=== PATIENT | female | born 1945 | race Caucasian/White ===

== ENCOUNTER 2016-08-12 11:27 | Inpatient (IN) ==
[2016-08-12] MEDS ORDERED: ONDANSETRON 4 MG/2 ML VIAL IV ONE (11:51)
[2016-08-12] MEDS ORDERED: 0.9 % SODIUM CHLORIDE 1,000 ML IV ONE (11:51)
--- NOTE | 2016-08-12 11:51 | Emergency Department Note ---
SOB HPI - General Chief Complaint: Shortness of Breath/Dyspnea Stated Complaint: Vomiting, shortness of breath Time Seen by Provider: 08/12/16 11:47 Source: patient Mode of arrival: wheelchair Limitations: no limitations - History of Present Illness This patient was diagnosed with UTI and night and started on Bactrim. Since then she has had nausea and vomiting. Also was developed shortness of breath. She has a history of COPD but does not feel like she has been wheezing or coughing much. MD Complaint: shortness of breath Onset (ago): day(s) Context: recent illness - Related Data Home Medications Medication Instructions Recorded Confirmed ALPRAZolam [Xanax] 0.25 mg PO BID 08/12/16 08/12/16 Albuterol Sulfate 1.25 mg IH QIDP PRN 08/12/16 08/12/16 Albuterol Sulfate [Proair 90 mcg IH Q6HP PRN 08/12/16 08/12/16 Respiclick] Aspirin [Lo-Dose Aspirin EC] 81 mg PO DAILY 08/12/16 08/12/16 Blood Sugar Diagnostic [Test 1 appful .ROUTE BID 08/12/16 08/12/16 Strips] Calcium Polycarbophil [Fiber] 1,250 mg PO DAILY 08/12/16 08/12/16 Cyanocobalamin (Vitamin B-12) 2,500 mcg PO MONTHLY 08/12/16 08/12/16 [Vitamin B12] Ergocalciferol (Vitamin D2) 50,000 unit PO WEEKLY 08/12/16 08/12/16 [Vitamin D2] Esomeprazole Magnesium [Nexium] 40 mg PO DAILY 08/12/16 08/12/16 Fluocinonide [Fluocinonide] 1 appful TOPICAL BID 08/12/16 08/12/16 Fluticasone Propionate [Flovent 1 spray INH DAILY 08/12/16 08/12/16 Diskus] Fluticasone/Salmeterol [Advair 1 puff INH BID 08/12/16 08/12/16 500-50 Diskus] HYDROcodone/APAP 10/325MG 1 - 2 tab PO Q4HP PRN 08/12/16 08/12/16 Lancets [Blood Lancets] 1 appful .ROUTE BID 08/12/16 08/12/16 Levothyroxine [Synthroid] 125 mcg PO DAILY 08/12/16 08/12/16 Metolazone [Zaroxolyn] 2.5 mg PO Q2D 08/12/16 08/12/16 Montelukast [Singular] 10 mg PO DAILY 08/12/16 08/12/16 Mv-Mn/FA/Vit K1/Lycop/Lut/Zeax 1 tab PO DAILY 08/12/16 08/12/16 [Ocuvite Eye + Multi Tablet] Ondansetron [Zofran Odt] 8 mg PO Q6HP PRN 08/12/16 08/12/16 Potassium Chloride [Kdur] 20 meq PO TID 08/12/16 08/12/16 Pramipexole Di-HCl [Mirapex] 1 mg PO DAILY 08/12/16 08/12/16 Refresh Tears 1 appful TOPICAL QIDP PRN 08/12/16 08/12/16 Theophylline Anhydrous [Kevin-24] 300 mg PO DAILY 08/12/16 08/12/16 Torsemide [Demadex] 60 mg PO DAILY 08/12/16 08/12/16 carBAMazepine [TEGretol] 100 mg PO BID 08/12/16 08/12/16 guaiFENesin [Mucinex] 1,200 mg PO DAILY 08/12/16 08/12/16 Allergies Allergy/AdvReac Type Severity Reaction Status Date / Time azithromycin Allergy Itching Verified 08/12/16 11:35 Hydromorphone [From Dilaudid] Allergy Rash Verified 08/12/16 11:35 pregabalin [From Lyrica] Allergy Shakiness Verified 08/12/16 11:35 tetanus and diphtheria Allergy Swelling Verified 08/12/16 11:35 toxoids Review of Systems Constitutional: Denies: fever, chills Eyes: Denies: eye pain ENT ED: Denies: ear pain Cardiovascular: Denies: chest pain, palpitations Respiratory: Reports: dyspnea. Denies: cough, wheezes Gastrointestinal: Reports: nausea, vomiting. Denies: abdominal pain Genitourinary: Reports: urgency, dysuria, frequency Musculoskeletal: Denies: back pain Integumentary: Denies: rash Past Medical History - Past Medical History Medical history: Reports: COPD, seizures, thyroid disease Physical Exam - General Limitations: no limitations General appearance: alert, in no apparent distress - Head Head exam: atraumatic, normocephalic - Eye Eye exam: Present: normal appearance - ENT ENT exam: mucous membranes dry - Neck Neck exam: Present: normal inspection - Chest Chest inspection: Present: normal inspection - Respiratory Respiratory exam: Present: normal lung sounds bilaterally - Cardiovascular Cardiovascular exam: Present: regular rate, normal rhythm, normal heart sounds - Abdominal Exam Abdominal exam: Present: soft. Absent: distention, tenderness - Neurological Exam Neurological exam: Present: alert - Psychiatric Psychiatric exam: Present: normal affect, normal mood - Skin Skin exam: Present: warm, dry, intact Course Vital Signs Temperature 98.2 F 08/12/16 11:29 Pulse Rate 88 08/12/16 11:29 Respiratory Rate 24 H 08/12/16 11:29 Blood Pressure 134/85 08/12/16 11:29 Pulse Oximetry (%) 85 L 08/12/16 11:29 Temperature 98.2 F 08/12/16 11:29 Pulse Rate 80 08/12/16 13:19 Respiratory Rate 18 08/12/16 13:19 Blood Pressure 151/87 08/12/16 13:00 Pulse Oximetry (%) 96 08/12/16 13:19 Shortness of Breath/Dyspnea - MDM Narrative Medical decision making narrative: This patient has pneumonia and hypo-kalemia. We did blood cultures and gave her Levaquin and Rocephin she will be admitted to the hospital by Dr. Salazar - Lab Data Lab results reviewed: Yes I reviewed the patient's lab results. Result diagrams: 08/12/16 11:53 08/12/16 11:53 Lab Results 08/12/16 08/12/16 08/12/16 Range/Units 11:53 11:53 11:53 WBC 6.2 (4.5-11.0) K/mcL RBC 4.73 (4.00-5.20) M/mcL Hgb 14.7 (12.0-15.0) g/dL Hct 43.4 (36.0-48.0) % MCV 91.6 (80.0-100.0) fL MCH 31.1 (26.0-34.0) pg MCHC 34.0 (31.0-36.0) g/dL RDW 14.7 H (11.5-14.5) % Plt Count 276 (140-440) K/mcL MPV 8.5 (7.4-10.4) fL Gran % 72.0 (38.0-78.0) % Lymph % (Auto) 13.9 L (15.5-49.0) % Tucker % (Auto) 11.2 (1.0-12.0) % Eos % (Auto) 1.8 (0.0-7.0) % Baso % (Auto) 1.1 (0.0-2.0) % Gran # 4.5 (1.8-8.0) K/mcL Lymph # (Auto) 0.9 L (1.5-4.8) K/mcL Tucker # (Auto) 0.7 (0.1-0.9) K/mcL Eos # (Auto) 0.1 (0.0-0.7) K/mcL Baso # (Auto) 0.1 (0.0-0.3) K/mcL VBG Lactic Acid 1.8 (0.5-2.2) mmol/L Sodium 129 L (133-145) mmol/L Potassium 2.9 L* (3.3-5.1) mmol/L Chloride 78 L (96-108) mmol/L Carbon Dioxide 36 H (22-30) mmol/L Anion Gap 15.0 (8-16) BUN 21 (8-23) mg/dl Creatinine 1.5 H (0.6-1.1) mg/dl GFR Calculation 34 Glucose 128 H (70-105) mg/dL Calcium 9.3 (8.6-10.4) mg/dl Total Bilirubin 0.5 (0.0-1.0) mg/dL AST 20 (0-37) U/l ALT 13 (0-40) U/l Alkaline Phosphatase 111 (39-117) U/L NT-Pro-B Natriuret Pep 90.7 (0-125) pg/ml Total Protein 7.3 (5.9-8.4) gm/dL Albumin 4.0 (3.2-5.2) gm/dL Globulin 3.3 (2.2-3.7) gm/dL Albumin/Globulin Ratio 1.2 (1.0-2.3) Urine Color Urine Appearance Urine pH (5.0-9.0) Ur Specific [place] (1.000-1.035) Urine Protein (NEG) mg/dL Urine Glucose (UA) (NEG) mg/dL Urine Ketones (NEG) mg/dL Urine Occult Blood (<0.03) mg/dL Urine Nitrate (NEG) Urine Bilirubin (NEG) mg/dL Urine Urobilinogen (NEG) mg/dL Ur Leukocyte Esterase (NEG) /uL Urine RBC (0-1) /hpf Urine WBC (0-4) /hpf Ur Squamous Epith Cells (0-4) /hpf Ur Transition Epith Cell (0-2) /hpf Urine Bacteria (0) /hpf Hyaline Casts (0-2) /lpf Urine Mucus (0) /hpf Ur Culture Indicated? 08/12/16 Range/Units 12:23 WBC (4.5-11.0) K/mcL RBC (4.00-5.20) M/mcL Hgb (12.0-15.0) g/dL Hct (36.0-48.0) % MCV (80.0-100.0) fL MCH (26.0-34.0) pg MCHC (31.0-36.0) g/dL RDW (11.5-14.5) % Plt Count (140-440) K/mcL MPV (7.4-10.4) fL Gran % (38.0-78.0) % Lymph % (Auto) (15.5-49.0) % Tucker % (Auto) (1.0-12.0) % Eos % (Auto) (0.0-7.0) % Baso % (Auto) (0.0-2.0) % Gran # (1.8-8.0) K/mcL Lymph # (Auto) (1.5-4.8) K/mcL Tucker # (Auto) (0.1-0.9) K/mcL Eos # (Auto) (0.0-0.7) K/mcL Baso # (Auto) (0.0-0.3) K/mcL VBG Lactic Acid (0.5-2.2) mmol/L Sodium (133-145) mmol/L Potassium (3.3-5.1) mmol/L Chloride (96-108) mmol/L Carbon Dioxide (22-30) mmol/L Anion Gap (8-16) BUN (8-23) mg/dl Creatinine (0.6-1.1) mg/dl GFR Calculation Glucose (70-105) mg/dL Calcium (8.6-10.4) mg/dl Total Bilirubin (0.0-1.0) mg/dL AST (0-37) U/l ALT (0-40) U/l Alkaline Phosphatase (39-117) U/L NT-Pro-B Natriuret Pep (0-125) pg/ml Total Protein (5.9-8.4) gm/dL Albumin (3.2-5.2) gm/dL Globulin (2.2-3.7) gm/dL Albumin/Globulin Ratio (1.0-2.3) Urine Color Bing Urine Appearance Clear Urine pH 5.0 (5.0-9.0) Ur Specific [place] 1.019 (1.000-1.035) Urine Protein Neg (NEG) mg/dL Urine Glucose (UA) Negative (NEG) mg/dL Urine Ketones Neg (NEG) mg/dL Urine Occult Blood Neg (<0.03) mg/dL Urine Nitrate Pos A (NEG) Urine Bilirubin Neg (NEG) mg/dL Urine Urobilinogen 2.0 A (NEG) mg/dL Ur Leukocyte Esterase Neg (NEG) /uL Urine RBC 2 H (0-1) /hpf Urine WBC 1 (0-4) /hpf Ur Squamous Epith Cells < 1 (0-4) /hpf Ur Transition Epith Cell < 1 (0-2) /hpf Urine Bacteria 0 (0) /hpf Hyaline Casts 41 H (0-2) /lpf Urine Mucus Few (0) /hpf Ur Culture Indicated? No - Radiology Data Radiology results reviewed: Yes I reviewed the patient's radiology results. Disposition Clinical Impression: Community acquired pneumonia Disposition: Xfer As Inpt ([facility]) Condition: Good Referrals: Catrachita Madden ARNP [Primary Care Provider] - Time of Disposition: 13:55
[2016-08-12 12:24] LABS: Basophils # (Auto) 0.1 K/mcL (0.0-0.3); Basophils % (Auto) 1.1 % (0.0-2.0); Eosinophils # (Auto) 0.1 K/mcL (0.0-0.7); Eosinophils % (Auto) 1.8 % (0.0-7.0); Lymphocytes # (Auto) 0.9 K/mcL (1.5-4.8); Lymphocytes % (Auto) 13.9 % (15.5-49.0); Mean Cell Volume 91.6 fL (80.0-100.0); Mean Corpuscular Hemoglobin 31.1 pg (26.0-34.0); Monocytes # (Auto) 0.7 K/mcL (0.1-0.9); Monocytes % (Auto) 11.2 % (1.0-12.0); Platelet Count 276 K/mcL (140-440); RBC 4.73 M/mcL (4.00-5.20); Red Cell Distribution Width 14.7 % (11.5-14.5)
[2016-08-12] MEDS ORDERED: cefTRIAXone 1 GM in DEXTROSE 5% IN WATER 50 ML IV ONE (12:25)
[2016-08-12] MEDS ORDERED: LEVOFLOXACIN 500 MG/100 ML BAG IV ONE (12:25)
[2016-08-12 12:45] LABS: ALT/SGPT 13 U/l (0-40); Albumin/Globulin Ratio 1.2 (1.0-2.3); Alkaline Phosphatase 111 U/L (39-117); Blood Urea Nitrogen 21 mg/dl (8-23); proBNP 90.7 pg/ml (0-125)
[2016-08-12 13:28] LABS: Appearance,Urine CLEAR; Bacteria,Urine 0 /hpf (0); Bilirubin,Urine NEG (NEG); Color,Urine AMBER; Glucose,Urine (UA) NEGATIVE (NEG); Leukocyte Esterase,Urine NEG /uL (NEG); Mucus,Urine FEW /hpf (0); Nitrate,Urine POS (NEG); Protein,Urine NEG (NEG); Specific Gravity,Urine 1.019 (1.000-1.035); Urine Blood NEG mg/dL (<0.03); Urine Hyaline Cast 41 /lpf (0-2); Urine RBC 2 /hpf (0-1); Urine Squamous Epithelial Cell < 1 /hpf (0-4); Urine Transitional Epi Cells < 1 /hpf (0-2); Urine WBC 1 /hpf (0-4)
[2016-08-12] MEDS ORDERED: LORazepam 2 MG/ML VIAL IV ONE ×2 (13:59→23:59)
[2016-08-12] MEDS ORDERED: VANCOMYCIN PER PHARMACY IV SCH ×2 (15:44→16:14)
[2016-08-12] MEDS ORDERED: VANCOMYCIN 1,500 MG in 0.9 % SODIUM CHLORIDE 500 ML IV ONE ×2 (16:00→16:14)
[2016-08-12] MEDS ORDERED: NALOXONE HCL 0.4 MG/ML VIAL IV PRN (16:14)
[2016-08-12] MEDS ORDERED: ONDANSETRON 4 MG/2 ML VIAL IV PRN (16:14)
[2016-08-12] MEDS ORDERED: MAGNESIUM HYDROXIDE 30 ML ORAL.SUSP PO PRN (16:14)
[2016-08-12] MEDS ORDERED: POTASSIUM CHLORIDE 40 MEQ in DEXTROSE 5% IN WATER 500 ML IV ONE (16:14)
--- NOTE | 2016-08-12 17:07 | XRay Report ---
CLINICAL INFORMATION: Shortness of breath COMPARISON: 08/01/2016 FINDINGS: The heart is mildly enlarged, but unchanged. Mediastinum is normal. Pulmonary vessels are mildly distended is mild interstitial edema in both lungs. Moderate sized left and smaller right midlung infiltrates are also noted. Moderate left pleural effusion noted IMPRESSION: 1. Mild CHF 2. Moderate left and small right mid lung infiltrates. Consider aspiration Interpreted and Authenticated by: Antonio Crouch 08/12/16
--- NOTE | 2016-08-12 18:19 | Cat Scan Report ---
CLINICAL INFORMATION: Sarcoidosis - follow-up COMPARISON: 05/09/[address] TECHNIQUE: 2.5 mm axial slices were obtained from the lung apices through the bases without intravenous contrast. Sagittal, coronal and axial reformatted images were processed and reviewed at bone, lung and soft tissue windows. 7 mm axial MIP images were also reconstructed. FINDINGS: Mediastinal windows show multiple enlarged partially calcified lymph nodes throughout the lower mediastinum and both venkat compatible chronic sarcoidosis. The size and number of these lymph nodes has actually diminished slightly since the previous study. The noncontrasted pulmonary arteries and thoracic aorta are unremarkable. The heart is borderline enlarged. Small hiatal hernia is noted. Pulmonary parenchymal windows show progression in parenchymal disease since previous study. Specifically, there are moderate sized nodular regions of consolidation extending from the left hilum into the left lower lobe, the right hilum into the right middle lobe and the anterior segment of the right upper lobe. A similar, although smaller region of consolidation extends into the lingula. In addition, there are multiple small nodules in a peribronchial vascular distribution extending from the hilum into both upper, right middle and lower lobes. A few of the nodules extend along the fissural surfaces. Small left pleural effusion noted. IMPRESSION: Marked progression in sarcoidosis now featuring moderate size regions of perihilar consolidation with multiple nodules in a peribronchovascular distribution extending from both venkat to the lung periphery. Multiple partially calcified lymph nodes in both venkat and lower mediastinum shows slight regression since the previous 2012 study, however. Interpreted and Authenticated by: Antonio Crouch 08/12/16
--- NOTE | 2016-08-12 19:27 | Internal Med History&Physical ---
Medical - H&P: HPI Patient information: Note initiated : 08/12/16 at 7:20 pm Service Date, if different from initiated Date: [] Patient: Rosalba Mueller a 71 y/o F admitted on 08/12/16 for Vomiting, shortness of breath. Chief Complaint: [] History of present illness: Ms. Mueller is a 71 year old F with h/o cva 2007, who presents to the ER today due to shortness of breath, weakness and hypoxia. The patients is the primary care provider to the patient as well as the history provider. He notes that the patient has not been feeling well for 2 days, has been short of breath and he noted that she has increased oxygen requirements. and was therefore brought to the ER. She has some cough, but no sputum production. Sob worse with activity, unable to do her transfers now. The patient sob relieved with rest. She usually uses oxygen at night, but over the last She has had a few episodes of nausea and vomiting over last 2 days, the patient was recently diagnosed with UTI and was on bactrim, the attributes the nausea and vomiting to the medication. The patient denies any abdominal pain, she has some constipation, but no diarrhea. The patient admits to having some cough and chills with shortness of breath, but no chest pain, or dizziness She denies any headaches, has some chr difficulty in swallowing with food getting stuck in the chest. No other major complaints. She denies any urinary complaints, no foul smelling urine, urinary urgency or frequency. The patient has h/o CHF, her PCP had recently ordered CXR And he noted chf, increased dose of diuretics, the patient also has h/o sarcoidosis and was on prednisone till end of january. She has had a lung biopsy and follows with pulmonary in [place]. The patient labs show normal wbc, CXR shows rashaad pna, some chf possible, she was admitted to the hospital for further management. All systems: reviewed and no additional remarkable complaints except as stated ( as per HPI) Medical - H&P: PMH Medical history: COPD SARcooidosis CHF CVA H/o HTN Surgical history: Tubal litgation, hiatal hernia surgery ICH with surgery in 2007 (aneurysm rupture) ventral hernia repair. Pertinent family history: fater with cad, [place] at 50 Social history: lives with [facility] bound, non smoke, no etoh or recreation drugs. Medical - H&P: Meds Home Medications Medication Instructions Recorded Confirmed Type ALPRAZolam [Xanax] 0.25 mg PO BID 08/12/16 08/12/16 History Albuterol Sulfate 1.25 mg IH QIDP PRN 08/12/16 08/12/16 History Albuterol Sulfate [Proair 90 mcg IH Q6HP PRN 08/12/16 08/12/16 History Respiclick] Aspirin [Lo-Dose Aspirin EC] 81 mg PO DAILY 08/12/16 08/12/16 History Blood Sugar Diagnostic [Test 1 appful .ROUTE BID 08/12/16 08/12/16 History Strips] Calcium Polycarbophil [Fiber] 1,250 mg PO DAILY 08/12/16 08/12/16 History Cyanocobalamin (Vitamin B-12) 2,500 mcg PO MONTHLY 08/12/16 08/12/16 History [Vitamin B12] Ergocalciferol (Vitamin D2) 50,000 unit PO WEEKLY 08/12/16 08/12/16 History [Vitamin D2] Esomeprazole Magnesium [Nexium] 40 mg PO DAILY 08/12/16 08/12/16 History Fluocinonide [Fluocinonide] 1 appful TOPICAL BID 08/12/16 08/12/16 History Fluticasone Propionate [Flovent 1 spray INH DAILY 08/12/16 08/12/16 History Diskus] Fluticasone/Salmeterol [Advair 1 puff INH BID 08/12/16 08/12/16 History 500-50 Diskus] HYDROcodone/APAP 10/325MG 1 - 2 tab PO Q4HP PRN 08/12/16 08/12/16 History Lancets [Blood Lancets] 1 appful .ROUTE BID 08/12/16 08/12/16 History Levothyroxine [Synthroid] 125 mcg PO DAILY 08/12/16 08/12/16 History Metolazone [Zaroxolyn] 2.5 mg PO MOWEFR@0900 08/12/16 08/12/16 History Montelukast [Singular] 10 mg PO DAILY 08/12/16 08/12/16 History Mv-Mn/FA/Vit K1/Lycop/Lut/Zeax 1 tab PO DAILY 08/12/16 08/12/16 History [Ocuvite Eye + Multi Tablet] Ondansetron [Zofran Odt] 8 mg PO Q6HP PRN 08/12/16 08/12/16 History Potassium Chloride [Kdur] 20 meq PO TID 08/12/16 08/12/16 History Pramipexole Di-HCl [Mirapex] 1 mg PO DAILY 08/12/16 08/12/16 History Refresh Tears 1 appful TOPICAL QIDP PRN 08/12/16 08/12/16 History Theophylline Anhydrous [Kevin-24] 300 mg PO DAILY 08/12/16 08/12/16 History Torsemide [Demadex] 60 mg PO DAILY 08/12/16 08/12/16 History carBAMazepine [TEGretol] 100 mg PO HS 08/12/16 08/12/16 History carBAMazepine [TEGretol] 200 mg PO DAILY 08/12/16 08/12/16 History guaiFENesin [Mucinex] 1,200 mg PO DAILY 08/12/16 08/12/16 History Allergies Allergy/AdvReac Type Severity Reaction Status Date / Time azithromycin Allergy Itching Verified 08/12/16 11:35 Hydromorphone [From Dilaudid] Allergy Rash Verified 08/12/16 11:35 pregabalin [From Lyrica] Allergy Shakiness Verified 08/12/16 11:35 tetanus and diphtheria Allergy Swelling Verified 08/12/16 11:35 toxoids Zolpidem [From Ambien] AdvReac Hallucinati Verified 08/12/16 19:11 ng Medical - H&P: Exam - Constitutional Vitals: Temp Pulse Resp BP Pulse Ox 98.5 F 78 24 H 135/69 95 08/12/16 16:15 08/12/16 16:15 08/12/16 16:15 08/12/16 16:30 08/12/16 16:15 Exam: GENERAL: The patient is a well-developed, well-nourished in no apparent distress. Is alert and oriented x2. VITAL SIGNS: Reviewed and as noted elsewhere. HEENT: Head is normocephalic and atraumatic. Extraocular muscles are intact. Pupils are equal, round, and reactive to light. Nares appeared normal. Mouth appears any without lesions. Mucous membranes are moist. NECK: Normal to inspection, Supple, No lymphadenopathy or thyromegaly. LUNGS: Air entry equal on both sides, rashaad prolonged exp phase, rashaad wheezing. HEART: Regular rate and rhythm normal, S1 and S2 heard, no Gallop, S3 or Rub Noted, No Gross murmur heard. ABDOMEN: Soft, nontender, and nondistended. Positive bowel sounds. No hepatosplenomegaly was noted. EXTREMITIES: No cyanosis, clubbing, rash, lesions or edema. NEUROLOGIC: Cranial nerves II through XII are grossly intact. left side weakness 2-3/5, (at baseline) PSYCHIATRIC: Normal affect, Normal Mood. Appropriate Behavior. SKIN: No ulceration or wounds noted, No jaundice, No rash noted. Medical - H&P: Reslt - Labs CBC & Chem 7: 08/12/16 11:53 08/12/16 11:53 Medical - H&P: A/P - Narrative A/P Narrative: A/P Health care associated PNA, Possible aspirational PNA given h/o vomiting: h/o recent ABX use, h/o sarcoidosis, CT and CXR shows PNA, treat with IV vanco and zosy, consider descalation after microbiology is back. will also check ua Sarcoid flare: This is possible, pt is on high dose of steroids. will taper over 2-3 weeks COPD exacerbation: Increased oxygen, rashaad wheezing, IV steroids, duonebs, and antibiotics, Oxygen via nasal canula monitor. Check theophylline levels. CHF: BNP is normal, conitnue home dose of diuretics, pt lactic acid and bp is normal Nausea and vomiting: Due to bactrim, hold for now. Renal failure: Creat 1.5, likely acute renal failure due to nausea and vomiting and drug use. Recheck in AM Acute hypokalemia due to nausea and vomiting, replace IV, Mg normal Acute hyponatremia, due to dual diuretics, monitor for now, adjust dosing if needed. DVT hep sq DNR Restless leg: continue home meds cva due to ICH: righ sided with left side weakness, patient weak overall, recent MRI reviewed, Pt on anti seizure meds, will check carbamazepine levels in AM. Medical - H&P: Qual - VTE Deep Vein Thrombosis/Pulmonary Embolism Present on Admission: No
[2016-08-12] MEDS ORDERED: POLYVINYL ALCOHOL OPHTH DROPS 15ML BOTTLE OU PRN (19:31)
[2016-08-12] MEDS: methylPREDNISolone SOD SUCC 125 MG/2 ML VIAL IV SCH ×2 (20:06→20:09)
[2016-08-12] MEDS ORDERED: PIPERACILLIN SODIUM/TAZOBACTAM 2.25 GM VIAL IV ONE (20:35)
[2016-08-12] MEDS: POTASSIUM CHLORIDE 10 MEQ TABLET PO SCH (20:35)
[2016-08-12] MEDS: FAMOTIDINE/PF 20 MG/2 ML VIAL IV SCH (20:35)
[2016-08-12] MEDS: HEPARIN 5,000 UNIT/ML VIAL SQ SCH (20:35)
[2016-08-12] MEDS: ALPRAZolam 0.25 MG TABLET PO SCH (20:35)
[2016-08-12] MEDS: carBAMazepine 100 MG TAB.CHEW PO SCH (20:40)
[2016-08-12] MEDS: PIPERACILLIN SODIUM/TAZOBACTAM 2.25 GM in DEXTROSE 5% IN WATER 50 ML IV SCH (20:43)
[2016-08-12] MEDS: IPRATROPIUM/ALBUTEROL 3 ML AMPUL.NEB NEB SCH ×2 (20:50→23:13)
[2016-08-12] MEDS ORDERED: carBAMazepine 100 MG TAB.CHEW PO SCH (21:00)
[2016-08-12] MEDS ORDERED: POTASSIUM CHLORIDE 20 MEQ/10 ML VIAL IV ONE (21:57)
[2016-08-13] MEDS ORDERED: LORazepam 2 MG/ML VIAL ONE ×2 (00:08→01:06)
[2016-08-13] MEDS ORDERED: PIPERACILLIN SODIUM/TAZOBACTAM 2.25 GM VIAL IV ONE ×2 (00:20→05:09)
[2016-08-13] MEDS: PIPERACILLIN SODIUM/TAZOBACTAM 2.25 GM in DEXTROSE 5% IN WATER 50 ML IV SCH ×3 (00:32→12:44)
[2016-08-13] MEDS ORDERED: LORazepam 2 MG/ML VIAL IV ONE (01:00)
[2016-08-13] MEDS: IPRATROPIUM/ALBUTEROL 3 ML AMPUL.NEB NEB SCH ×6 (02:59→23:14)
[2016-08-13] MEDS: methylPREDNISolone SOD SUCC 125 MG/2 ML VIAL IV SCH ×3 (05:16→21:58)
[2016-08-13 05:43] LABS: Basophils # (Auto) 0 K/mcL (0.0-0.3); Basophils % (Auto) 0.5 % (0.0-2.0); Eosinophils # (Auto) 0 K/mcL (0.0-0.7); Eosinophils % (Auto) 0.2 % (0.0-7.0); Lymphocytes # (Auto) 0.5 K/mcL (1.5-4.8); Lymphocytes % (Auto) 14.2 % (15.5-49.0); Mean Cell Volume 91.9 fL (80.0-100.0); Mean Corpuscular HGB Conc 34.6 g/dL (31.0-36.0); Mean Corpuscular Hemoglobin 31.8 pg (26.0-34.0); Monocytes # (Auto) 0.2 K/mcL (0.1-0.9); Monocytes % (Auto) 7.1 % (1.0-12.0); Platelet Count 222 K/mcL (140-440); RBC 3.87 M/mcL (4.00-5.20); Red Cell Distribution Width 14.6 % (11.5-14.5)
[2016-08-13 06:08] LABS: ALT/SGPT 11 U/l (0-40); Albumin 3.4 gm/dL (3.2-5.2); Albumin/Globulin Ratio 1.4 (1.0-2.3); Alkaline Phosphatase 87 U/L (39-117); Bilirubin,Direct < 0.2 mg/dL (0.0-0.3); Blood Urea Nitrogen 15 mg/dl (8-23); Gamma Glutamyl Transpeptidase 93 U/L (5-36); Uric Acid 7.8 mg/dL (2.5-8.0)
[2016-08-13] MEDS: PANTOPRAZOLE 40 MG TABLET PO SCH (07:20)
[2016-08-13] MEDS: LEVOTHYROXINE 125 MCG TABLET PO SCH (07:20)
[2016-08-13] MEDS ORDERED: carBAMazepine 200 MG TABLET PO SCH (09:00)
[2016-08-13] MEDS ORDERED: PRAMIPEXOLE DI HCL 1 MG PO SCH (09:00)
[2016-08-13] MEDS ORDERED: PRAMIPEXOLE 1 MG TABLET PO SCH (09:00)
[2016-08-13] MEDS ORDERED: Fluticasone Propionate [Flovent Diskus] 50 MCG INH SCH (09:00)
[2016-08-13] MEDS ORDERED: THEOPHYLLINE ANHYDROUS 300 MG PO SCH (09:00)
[2016-08-13] MEDS: ASPIRIN 81 MG TAB.CHEW PO SCH (09:22)
[2016-08-13] MEDS: TORSEMIDE 10 MG TABLET PO SCH (09:22)
[2016-08-13] MEDS: CALCIUM POLYCARBOPHIL 1 TABLET PO SCH (09:23)
[2016-08-13] MEDS: guaiFENesin 600 MG TAB.SR.12H PO SCH (09:23)
[2016-08-13] MEDS: POTASSIUM CHLORIDE 10 MEQ TABLET PO SCH ×3 (09:23→21:22)
[2016-08-13] MEDS: HEPARIN 5,000 UNIT/ML VIAL SQ SCH ×2 (09:23→21:19)
[2016-08-13] MEDS: MONTELUKAST 10 MG TABLET PO SCH (09:24)
[2016-08-13] MEDS: VIT A,C & E/LUTEIN/MINERALS TABLET PO SCH (09:24)
[2016-08-13] MEDS: FAMOTIDINE/PF 20 MG/2 ML VIAL IV SCH ×2 (09:24→21:22)
[2016-08-13] MEDS: carBAMazepine 100 MG TAB.CHEW PO SCH ×2 (09:25→21:22)
[2016-08-13] MEDS: METOLAZONE 2.5 MG TABLET PO SCH (09:25)
[2016-08-13] MEDS: HYDROcodone/APAP 10/325MG TABLET PO PRN ×2 (09:26→23:22)
[2016-08-13] MEDS: ALPRAZolam 0.25 MG TABLET PO SCH ×2 (09:31→21:22)
[2016-08-13] MEDS ORDERED: CALCIUM CARBONATE 500 MG TAB.CHEW CHEWED PRN (10:03)
[2016-08-13] MEDS: FLUTICASONE/SALMETEROL 500/50 INHALER #14 INH SCH ×2 (12:44→21:19)
[2016-08-13 13:55] LABS: Vancomycin,Random 10.9 ug/ml
[2016-08-13] MEDS ORDERED: PRAMIPEXOLE 1 MG TABLET PO ONE (16:00)
[2016-08-13] MEDS ORDERED: VANCOMYCIN 1,500 MG in 0.9 % SODIUM CHLORIDE 500 ML IV SCH (16:00)
--- NOTE | 2016-08-13 16:56 | Internal Med Progress Note ---
Medical - PN: Subj Patient information: Note initiated : 08/13/16 at 4:54 pm Service Date, if different from initiated Date: [] Patient: Rosalba Mueller a 71 y/o F admitted on 08/12/16 for Vomiting, Shortness of Breath/Pneumonia. Chief Complaint: [] Interval history: Ms. Mueller is a 71 year old F with h/o cva 2007, who presents to the ER today due to shortness of breath, weakness and hypoxia. The patients is the primary care provider to the patient as well as the history provider. He notes that the patient has not been feeling well for 2 days, has been short of breath and he noted that she has increased oxygen requirements. and was therefore brought to the ER. She has some cough, but no sputum production. Sob worse with activity, unable to do her transfers now. The patient sob relieved with rest. She usually uses oxygen at night, but over the last She has had a few episodes of nausea and vomiting over last 2 days, the patient was recently diagnosed with UTI and was on bactrim, the attributes the nausea and vomiting to the medication. The patient denies any abdominal pain, she has some constipation, but no diarrhea. The patient admits to having some cough and chills with shortness of breath, but no chest pain, or dizziness She denies any headaches, has some chr difficulty in swallowing with food getting stuck in the chest. No other major complaints. She denies any urinary complaints, no foul smelling urine, urinary urgency or frequency. The patient has h/o CHF, her PCP had recently ordered CXR And he noted chf, increased dose of diuretics, the patient also has h/o sarcoidosis and was on prednisone till end of january. She has had a lung biopsy and follows with pulmonary in [place]. The patient labs show normal wbc, CXR shows rashaad pna, some chf possible, she was admitted to the hospital for further management. 07/14: Pt seen examined, no acute overnight issues, pt doing better this AM, was off oxygen this AM, denies any acute complaints, has chr restles leg issues which still bother her. see a/p for 3 conditions reviewed and addressed. Pertinent ROS: Denies headache, dizziness Denies chest pain, palpitations Improving shortness of breath, improving cough. Denies abdominal pain, nausea or vomiting. - Constitutional Vitals: Vital Signs Temp Pulse Resp BP Pulse Ox 97.7 F 76 24 H 123/78 100 08/13/16 16:00 08/13/16 16:00 08/13/16 16:00 08/13/16 16:00 08/13/16 16:00 Period Temp Pulse Resp BP Sys/Bond Pulse Ox Last 24 Hr 97.5 F-98.1 F 63-79 16-24 116-157/65-91 91-100 Intake and Output 08/13/16 08/13/16 08/13/16 05:59 13:59 21:59 Intake Total 820 / 820 720 / 720 Output Total 800 / 800 1550 / 1550 850 / 850 Balance 20 / 20 -1550 / -1550 -130 / -130 Weight 192 lb 1.6 oz Patient Weight 08/14/16 05:59 Weight 192 lb 1.6 oz Intake & Output: Intake & Output 08/13/16 08/13/16 08/13/16 05:59 13:59 21:59 Intake Total 820 / 820 720 / 720 Output Total 800 / 800 1550 / 1550 850 / 850 Balance 20 / 20 -1550 / -1550 -130 / -130 Weight 192 lb 1.6 oz Intake: IV 520 / 520 Oral 300 / 300 720 / 720 Output: Urine Catheter Amount 800 / 800 1550 / 1550 850 / 850 Exam: Constitutional; Afebrile, cooperative, alert, not in distress. Eyes- No icterus, , No periorbital swelling Ears- Ext ear normal, hearing normal to conversation. Neck- Midline trachea, supple Respiratory system: Air Entry equal on both sides, No crackles or wheezing, no rhonchi. CVS- Rate rhythm regular, S1,S2 heard, no gallop, no rub. 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 Medical - PN: Obj Da - Labs CBC & Chem 7: 08/13/16 04:43 08/13/16 04:43 Labs: Abnormal Lab Results 08/13/16 08/13/16 08/13/16 04:43 04:43 04:43 WBC RBC Hct RDW Lymph % (Auto) Lymph # (Auto) ESR 32 H Chloride 91 L Glucose 130 H Calcium 8.4 L Phosphorus 2.5 L GGT 93 H Carbamazepine 3.8 L Theophylline 0.9 L 08/13/16 04:43 WBC 3.3 L RBC 3.87 L Hct 35.6 L RDW 14.6 H Lymph % (Auto) 14.2 L Lymph # (Auto) 0.5 L ESR Chloride Glucose Calcium Phosphorus GGT Carbamazepine Theophylline Meds: Medications Acetaminophen (Tylenol) 650 mg PO Q6HP PRN PRN Reason: PAIN/FEVER > 101 Hydrocodone Bitart/Acetaminophen ([place]imer 10/325mg) 1 - 2 tab PO Q4HP PRN PRN Reason: Pain Last Admin: 08/13/16 09:26 Dose: 1 tab Albuterol/Ipratropium (Duoneb) 3 ml NEB Q4HRT [facility] Last Admin: 08/13/16 15:32 Dose: 3 ml Alprazolam (Xanax) 0.25 mg PO BID [facility] Last Admin: 08/13/16 09:31 Dose: 0.25 mg Artificial Tears (Artificial Tears Ophth Drops) 1 gtt OU QIDP PRN PRN Reason: Dry Eyes Aspirin (Aspirin) 81 mg PO DAILY [facility] Last Admin: 08/13/16 09:22 Dose: 81 mg Calcium Carbonate/Glycine (Tums) 500 mg CHEWED ONCE PRN PRN Reason: Indigestion Calcium Polycarbophil (Fibercon) 2 tab PO DAILY [facility] Last Admin: 08/13/16 09:23 Dose: 2 tab Carbamazepine (Tegretol) 200 mg PO DAILY [facility] Last Admin: 08/13/16 09:25 Dose: 200 mg Carbamazepine (Tegretol) 100 mg PO QHS [facility] Last Admin: 08/12/16 20:40 Dose: 100 mg Famotidine (Pepcid) 20 mg IV Q12 [facility] Last Admin: 08/13/16 09:24 Dose: 20 mg Guaifenesin (Mucinex) 1,200 mg PO DAILY [facility] Last Admin: 08/13/16 09:23 Dose: 1,200 mg Heparin Sodium (Porcine) (Heparin) 5,000 unit SQ Q12 [facility] Last Admin: 08/13/16 09:23 Dose: 5,000 unit Vancomycin HCl 1,500 mg/ (Sodium Chloride) 500 mls @ 333.3 mls/hr IV Q24H [facility] Last Admin: 08/13/16 16:07 Dose: 333.3 mls/hr Piperacillin Sod/Tazobactam (Sod 3.375 gm/ Dextrose) 50 mls @ 100 mls/hr IV Q6H [facility] Levothyroxine Sodium (Synthroid) 125 mcg PO ACB [facility] Last Admin: 08/13/16 07:20 Dose: 125 mcg Magnesium Hydroxide (Milk Of Magnesia) 30 ml PO DAILYP PRN PRN Reason: Constipation Methylprednisolone Sodium Succinate (Solu-Medrol) 62.5 mg IV Q8 [facility] Last Admin: 08/13/16 13:58 Dose: 62.5 mg Metolazone (Zaroxolyn) 2.5 mg PO MOWEFR@0900 [facility] Last Admin: 08/13/16 09:25 Dose: 2.5 mg Montelukast Sodium (Singular) 10 mg PO DAILY [facility] Last Admin: 08/13/16 09:24 Dose: 10 mg Multivitamins/Minerals (Ocuvite) 1 tab PO DAILY [facility] Last Admin: 08/13/16 09:24 Dose: 1 tab Naloxone HCl (Narcan) 0.1 mg IV Q2MIN PRN PRN Reason: Opiate Reversal Ondansetron HCl (Zofran) 4 mg IV Q4HP PRN PRN Reason: Nausea And Vomiting Pantoprazole Sodium (Protonix) 40 mg PO QAMAC [facility] Last Admin: 08/13/16 07:20 Dose: 40 mg Theophylline Anhydrous [Kevin-24] 300 Mg Capsule 1 dose PO HS [facility] Potassium Chloride (Kdur) 20 meq PO TID [facility] Last Admin: 08/13/16 16:07 Dose: 20 meq Pramipexole Dihydrochloride (Mirapex) 1 mg PO HS [facility] Fluticasone/Salmeterol (Advair 500-50 Diskus) 1 puff INH BID [facility] Last Admin: 08/13/16 12:44 Dose: 1 puff Torsemide (Demadex) 60 mg PO DAILY [facility] Last Admin: 08/13/16 09:22 Dose: 60 mg Vancomycin HCl (Vancomycin Per Pharmacy) 1 order IV UD [facility] Medical - PN: A/P - Time Spent With Patient Total time spent is greater than 50% in coordination of care (as documented) at patient's floor/unit and/or counseling patient: - Narrative A/P Narrative: A/P Health care associated PNA, Possible aspirational PNA given h/o vomiting: h/o recent ABX use, h/o sarcoidosis, CT and CXR shows PNA, treat with IV vanco and zosy, day 2 of ABX today, microbiology pending. UTI: noted on UA, should be covered by zosyn. Sarcoid flare: This is possible, pt is on high dose of steroids. will taper over 2-3 weeks, CT chest shows worsenig sarcoid since last scan. COPD exacerbation: oxygen levels better, on steroids and duonebs and abx, kevin levels low, CHF: BNP is normal, continue home dose of diuretics, pt lactic acid and bp is normal Nausea and vomiting: Due to bactrim, resolved. Renal failure: Creat 1.0, due to bactrim and pre renal, now resolved. Acute hypokalemia : resolved, monitor. Acute hyponatremia, improved after hydration, monitor. DVT hep sq DNR Restless leg: continue home meds cva due to ICH: righ sided with left side weakness, patient weak overall, recent MRI reviewed, Pt on anti seizure meds, carbamazepine levels low, but pt does not have any recent seizures. Medical - PN: Qual - VTE Deep Vein Thrombosis/Pulmonary Embolism Present on Admission: No
[2016-08-13] MEDS: PRAMIPEXOLE 1 MG TABLET PO SCH ×2 (18:11→21:12)
[2016-08-13] MEDS: PIPERACILLIN SODIUM/TAZOBACTAM 3.375 GM in DEXTROSE 5% IN WATER 50 ML IV SCH (18:11)
[2016-08-13] MEDS: THEOPHYLLINE ANHYDROUS 300 MG PO SCH (21:23)
[2016-08-14] MEDS: PIPERACILLIN SODIUM/TAZOBACTAM 3.375 GM in DEXTROSE 5% IN WATER 50 ML IV SCH ×4 (00:39→17:40)
[2016-08-14] MEDS: IPRATROPIUM/ALBUTEROL 3 ML AMPUL.NEB NEB SCH ×6 (03:25→23:00)
[2016-08-14] MEDS: methylPREDNISolone SOD SUCC 125 MG/2 ML VIAL IV SCH (05:29)
[2016-08-14 06:03] LABS: Basophils # (Auto) 0 K/mcL (0.0-0.3); Basophils % (Auto) 0.2 % (0.0-2.0); Eosinophils # (Auto) 0 K/mcL (0.0-0.7); Eosinophils % (Auto) 0.2 % (0.0-7.0); Granulocytes % (Auto) 81.8 % (38.0-78.0); Lymphocytes # (Auto) 0.7 K/mcL (1.5-4.8); Lymphocytes % (Auto) 12.6 % (15.5-49.0); Mean Cell Volume 92.3 fL (80.0-100.0); Mean Corpuscular HGB Conc 34.3 g/dL (31.0-36.0); Mean Corpuscular Hemoglobin 31.6 pg (26.0-34.0); Monocytes # (Auto) 0.3 K/mcL (0.1-0.9); Monocytes % (Auto) 5.2 % (1.0-12.0); Platelet Count 239 K/mcL (140-440); RBC 4.14 M/mcL (4.00-5.20); Red Cell Distribution Width 14.7 % (11.5-14.5)
[2016-08-14 06:32] LABS: ALT/SGPT 12 U/l (0-40); Albumin 3.7 gm/dL (3.2-5.2); Albumin/Globulin Ratio 1.3 (1.0-2.3); Alkaline Phosphatase 87 U/L (39-117); Bilirubin,Direct < 0.2 mg/dL (0.0-0.3); Blood Urea Nitrogen 19 mg/dl (8-23); Gamma Glutamyl Transpeptidase 105 U/L (5-36); Magnesium 1.8 mg/dL (1.6-2.5); Uric Acid 6.8 mg/dL (2.5-8.0)
[2016-08-14] MEDS: PANTOPRAZOLE 40 MG TABLET PO SCH (06:57)
[2016-08-14] MEDS: LEVOTHYROXINE 125 MCG TABLET PO SCH (06:57)
[2016-08-14] MEDS ORDERED: POTASSIUM CHLORIDE 40 MEQ in DEXTROSE 5% IN WATER 500 ML IV ONE (08:00)
[2016-08-14] MEDS: guaiFENesin 600 MG TAB.SR.12H PO SCH (08:53)
[2016-08-14] MEDS: TORSEMIDE 10 MG TABLET PO SCH (08:54)
[2016-08-14] MEDS: POTASSIUM CHLORIDE 10 MEQ TABLET PO SCH ×3 (08:54→21:13)
[2016-08-14] MEDS: MONTELUKAST 10 MG TABLET PO SCH (08:54)
[2016-08-14] MEDS: ASPIRIN 81 MG TAB.CHEW PO SCH (08:55)
[2016-08-14] MEDS: ALPRAZolam 0.25 MG TABLET PO SCH ×2 (08:55→21:13)
[2016-08-14] MEDS: HEPARIN 5,000 UNIT/ML VIAL SQ SCH ×2 (08:56→21:13)
[2016-08-14] MEDS: FAMOTIDINE/PF 20 MG/2 ML VIAL IV SCH ×2 (08:56→21:16)
[2016-08-14] MEDS: carBAMazepine 100 MG TAB.CHEW PO SCH ×2 (08:58→21:15)
[2016-08-14] MEDS: FLUTICASONE/SALMETEROL 500/50 INHALER #14 INH SCH ×2 (08:58→21:13)
[2016-08-14] MEDS: VIT A,C & E/LUTEIN/MINERALS TABLET PO SCH (08:58)
[2016-08-14] MEDS: CALCIUM POLYCARBOPHIL 1 TABLET PO SCH (08:58)
[2016-08-14] MEDS ORDERED: VANCOMYCIN 1,000 MG in 0.9 % SODIUM CHLORIDE 250 ML IV SCH (15:00)
[2016-08-14] MEDS: PRAMIPEXOLE 1 MG TABLET PO SCH ×2 (15:15→21:17)
--- NOTE | 2016-08-14 15:40 | Internal Med Progress Note ---
Medical - PN: Subj Patient information: Note initiated : 08/14/16 at 3:38 pm Service Date, if different from initiated Date: [] Patient: Rosalba Mueller a 71 y/o F admitted on 08/12/16 for Vomiting, Shortness of Breath/Pneumonia. Chief Complaint: [] Interval history: Ms. Mueller is a 71 year old F with h/o cva 2007, who presents to the ER today due to shortness of breath, weakness and hypoxia. The patients is the primary care provider to the patient as well as the history provider. He notes that the patient has not been feeling well for 2 days, has been short of breath and he noted that she has increased oxygen requirements. and was therefore brought to the ER. She has some cough, but no sputum production. Sob worse with activity, unable to do her transfers now. The patient sob relieved with rest. She usually uses oxygen at night, but over the last She has had a few episodes of nausea and vomiting over last 2 days, the patient was recently diagnosed with UTI and was on bactrim, the attributes the nausea and vomiting to the medication. The patient denies any abdominal pain, she has some constipation, but no diarrhea. The patient admits to having some cough and chills with shortness of breath, but no chest pain, or dizziness She denies any headaches, has some chr difficulty in swallowing with food getting stuck in the chest. No other major complaints. She denies any urinary complaints, no foul smelling urine, urinary urgency or frequency. The patient has h/o CHF, her PCP had recently ordered CXR And he noted chf, increased dose of diuretics, the patient also has h/o sarcoidosis and was on prednisone till end of january. She has had a lung biopsy and follows with pulmonary in [place]. The patient labs show normal wbc, CXR shows rashaad pna, some chf possible, she was admitted to the hospital for further management. 07/14: Pt seen examined, no acute overnight issues, pt doing better this AM, was off oxygen this AM, denies any acute complaints, has chr restles leg issues which still bother her. see a/p for 3 conditions reviewed and addressed. 07/15 Pt seen examiend, no acute issues, pt doing better, K noted to be very low again today, will replace IV, KCL plus increase oral dose. no other concern reported. Pertinent ROS: Denies headache, dizziness Denies chest pain, palpitations Denies cough or shortness of breath Denies abdominal pain, nausea or vomiting. - Constitutional Vitals: Vital Signs Temp Pulse Resp BP Pulse Ox 97.5 F 77 16 116/75 95 08/14/16 13:12 08/14/16 12:00 08/14/16 13:12 08/14/16 12:00 08/14/16 13:12 Period Temp Pulse Resp BP Sys/Bond Pulse Ox Last 24 Hr 97.4 F-99.1 F 73-96 16-24 116-138/62-78 88-100 Intake and Output 08/14/16 08/14/16 08/14/16 05:59 13:59 21:59 Intake Total 490 / 490 530 / 530 Output Total 1225 / 1225 1250 / 1250 Balance -735 / -735 -720 / -720 Intake & Output: Intake & Output 08/14/16 08/14/16 08/14/16 05:59 13:59 21:59 Intake Total 490 / 490 530 / 530 Output Total 1225 / 1225 1250 / 1250 Balance -735 / -735 -720 / -720 Intake: IV 50 / 50 50 / 50 Zosyn 3.375 gm In 50 / 50 50 / 50 Dextrose 5% in Water 50 ml @ 100 mls/hr IV Q6H [facility] Rx#:[id number] Oral 440 / 440 480 / 480 Output: Urine Catheter Amount 1225 / 1225 1250 / 1250 Other: Meal Breakfast Percent of Meal Consumed 75% Feeding Ability Assist with Tray Set Up # Bowel Movements 1 Exam: Constitutional; Afebrile, cooperative, alert, not in distress. Eyes- No icterus, , No periorbital swelling Ears- Ext ear normal, hearing normal to conversation. Neck- Midline trachea, supple Respiratory system: Air Entry equal on both sides, No crackles or wheezing, no rhonchi. CVS- Rate rhythm regular, S1,S2 heard, no gallop, no rub. 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 Medical - PN: Obj Da - Labs CBC & Chem 7: 08/14/16 04:43 08/14/16 04:43 Labs: Abnormal Lab Results 08/14/16 08/14/16 08/14/16 12:57 04:43 04:43 WBC RBC Hct RDW 14.7 H Gran % 81.8 H Lymph % (Auto) 12.6 L Lymph # (Auto) 0.7 L ESR Potassium 2.6 L* Chloride 87 L Carbon Dioxide 33 H Glucose 137 H Calcium Phosphorus GGT 105 H Vancomycin Trough 18.5 H Carbamazepine Theophylline 08/13/16 08/13/16 08/13/16 04:43 04:43 04:43 WBC RBC Hct RDW Gran % Lymph % (Auto) Lymph # (Auto) ESR 32 H Potassium Chloride 91 L Carbon Dioxide Glucose 130 H Calcium 8.4 L Phosphorus 2.5 L GGT 93 H Vancomycin Trough Carbamazepine 3.8 L Theophylline 0.9 L 08/13/16 04:43 WBC 3.3 L RBC 3.87 L Hct 35.6 L RDW 14.6 H Gran % Lymph % (Auto) 14.2 L Lymph # (Auto) 0.5 L ESR Potassium Chloride Carbon Dioxide Glucose Calcium Phosphorus GGT Vancomycin Trough Carbamazepine Theophylline Meds: Medications Acetaminophen (Tylenol) 650 mg PO Q6HP PRN PRN Reason: PAIN/FEVER > 101 Hydrocodone Bitart/Acetaminophen ([place] 10/325mg) 1 - 2 tab PO Q4HP PRN PRN Reason: Pain Last Admin: 08/13/16 23:22 Dose: 1 tab Albuterol/Ipratropium (Duoneb) 3 ml NEB Q4HRT [facility] Last Admin: 08/14/16 11:13 Dose: 3 ml Alprazolam (Xanax) 0.25 mg PO BID [facility] Last Admin: 08/14/16 08:55 Dose: 0.25 mg Artificial Tears (Artificial Tears Ophth Drops) 1 gtt OU QIDP PRN PRN Reason: Dry Eyes Aspirin (Aspirin) 81 mg PO DAILY [facility] Last Admin: 08/14/16 08:55 Dose: 81 mg Calcium Carbonate/Glycine (Tums) 500 mg CHEWED ONCE PRN PRN Reason: Indigestion Calcium Polycarbophil (Fibercon) 2 tab PO DAILY [facility] Last Admin: 08/14/16 08:58 Dose: 2 tab Carbamazepine (Tegretol) 200 mg PO DAILY [facility] Last Admin: 08/14/16 08:58 Dose: 200 mg Carbamazepine (Tegretol) 100 mg PO QHS [facility] Last Admin: 08/13/16 21:22 Dose: 100 mg Famotidine (Pepcid) 20 mg IV Q12 [facility] Last Admin: 08/14/16 08:56 Dose: 20 mg Guaifenesin (Mucinex) 1,200 mg PO DAILY [facility] Last Admin: 08/14/16 08:53 Dose: 1,200 mg Heparin Sodium (Porcine) (Heparin) 5,000 unit SQ Q12 [facility] Last Admin: 08/14/16 08:56 Dose: 5,000 unit Piperacillin Sod/Tazobactam (Sod 3.375 gm/ Dextrose) 50 mls @ 100 mls/hr IV Q6H [facility] Last Admin: 08/14/16 12:22 Dose: 100 mls/hr Vancomycin HCl 1,000 mg/ (Sodium Chloride) 250 mls @ 250 mls/hr IV Q24H [facility] Last Admin: 08/14/16 15:13 Dose: 250 mls/hr Levothyroxine Sodium (Synthroid) 125 mcg PO ACB [facility] Last Admin: 08/14/16 06:57 Dose: 125 mcg Magnesium Hydroxide (Milk Of Magnesia) 30 ml PO DAILYP PRN PRN Reason: Constipation Methylprednisolone Sodium Succinate (Solu-Medrol) 62.5 mg IV Q12 [facility] Metolazone (Zaroxolyn) 2.5 mg PO MOWEFR@0900 [facility] Last Admin: 08/13/16 09:25 Dose: 2.5 mg Montelukast Sodium (Singular) 10 mg PO DAILY [facility] Last Admin: 08/14/16 08:54 Dose: 10 mg Multivitamins/Minerals (Ocuvite) 1 tab PO DAILY [facility] Last Admin: 08/14/16 08:58 Dose: 1 tab Naloxone HCl (Narcan) 0.1 mg IV Q2MIN PRN PRN Reason: Opiate Reversal Ondansetron HCl (Zofran) 4 mg IV Q4HP PRN PRN Reason: Nausea And Vomiting Pantoprazole Sodium (Protonix) 40 mg PO QAMAC [facility] Last Admin: 08/14/16 06:57 Dose: 40 mg Theophylline Anhydrous [Kevin-24] 300 Mg Capsule 1 dose PO HS [facility] Last Admin: 08/13/16 21:23 Dose: 1 dose Potassium Chloride (Kdur) 30 meq PO TID [facility] Last Admin: 08/14/16 15:14 Dose: 30 meq Pramipexole Dihydrochloride (Mirapex) 1 mg PO HS [facility] Last Admin: 08/14/16 15:15 Dose: 1 mg Fluticasone/Salmeterol (Advair 500-50 Diskus) 1 puff INH BID [facility] Last Admin: 08/14/16 08:58 Dose: 1 puff Torsemide (Demadex) 60 mg PO DAILY [facility] Last Admin: 08/14/16 08:54 Dose: 60 mg Vancomycin HCl (Vancomycin Per Pharmacy) 1 order IV UD [facility] Medical - PN: A/P - Time Spent With Patient Total time spent is greater than 50% in coordination of care (as documented) at patient's floor/unit and/or counseling patient: - Narrative A/P Narrative: A/P Health care associated PNA, Possible aspirational PNA given h/o vomiting: h/o recent ABX use, h/o sarcoidosis, CT and CXR shows PNA, treat with IV vanco and zosy, day 3 of ABX today, microbiology negative so far. UTI: noted on UA, should be covered by zosyn. urine culture neg so far. Sarcoid flare: This is possible, pt is on high dose of steroids. will taper over 2-3 weeks, CT chest shows worsening sarcoid since last scan. COPD exacerbation: oxygen no longe needed , on steroids and duonebs and abx, kevin levels low, swich to oral steroids. CHF: BNP is normal, continue home dose of diuretics, pt lactic acid and bp is normal Nausea and vomiting: Due to bactrim, resolved. Renal failure: Creat 1.0, due to bactrim and pre renal, now resolved. Acute hypokalemia : 2.6 K, IV 40 Kcl, increase dose of oral replacements to 30mg TID Acute hyponatremia, improved after hydration, DVT hep sq DNR Restless leg: continue home meds, no concerns now. cva due to ICH: righ sided with left side weakness, patient weak overall, recent MRI reviewed, Pt on anti seizure meds, carbamazepine levels low, but pt does not have any recent seizures. Medical - PN: Qual - VTE Deep Vein Thrombosis/Pulmonary Embolism Present on Admission: No
[2016-08-14 15:57] LABS: Blood Urea Nitrogen 20 mg/dl (8-23)
[2016-08-14] MEDS ORDERED: POTASSIUM CHLORIDE 20 MEQ PACKET PO ONE (16:08)
[2016-08-14] MEDS: ACETAMINOPHEN 325 MG TABLET PO PRN (17:39)
[2016-08-14] MEDS ORDERED: methylPREDNISolone SOD SUCC 125 MG/2 ML VIAL IV SCH (21:00)
[2016-08-14] MEDS: THEOPHYLLINE ANHYDROUS 300 MG PO SCH (21:16)
[2016-08-15] MEDS: HYDROcodone/APAP 10/325MG TABLET PO PRN (01:05)
[2016-08-15] MEDS: PIPERACILLIN SODIUM/TAZOBACTAM 3.375 GM in DEXTROSE 5% IN WATER 50 ML IV SCH ×3 (01:20→12:50)
[2016-08-15] MEDS: IPRATROPIUM/ALBUTEROL 3 ML AMPUL.NEB NEB SCH ×4 (03:10→15:15)
[2016-08-15 05:59] LABS: Basophils # (Auto) 0 K/mcL (0.0-0.3); Basophils % (Auto) 0.4 % (0.0-2.0); Eosinophils # (Auto) 0.1 K/mcL (0.0-0.7); Eosinophils % (Auto) 1.4 % (0.0-7.0); Granulocytes % (Auto) 68.1 % (38.0-78.0); Lymphocytes # (Auto) 1.6 K/mcL (1.5-4.8); Lymphocytes % (Auto) 21.3 % (15.5-49.0); Mean Cell Volume 92.6 fL (80.0-100.0); Mean Corpuscular HGB Conc 34.1 g/dL (31.0-36.0); Mean Corpuscular Hemoglobin 31.6 pg (26.0-34.0); Monocytes # (Auto) 0.7 K/mcL (0.1-0.9); Monocytes % (Auto) 8.8 % (1.0-12.0); Platelet Count 256 K/mcL (140-440); RBC 4.38 M/mcL (4.00-5.20); Red Cell Distribution Width 14.7 % (11.5-14.5)
[2016-08-15 06:49] LABS: ALT/SGPT 16 U/l (0-40); Albumin 3.4 gm/dL (3.2-5.2); Albumin/Globulin Ratio 1.1 (1.0-2.3); Alkaline Phosphatase 85 U/L (39-117); Bilirubin,Direct < 0.2 mg/dL (0.0-0.3); Blood Urea Nitrogen 21 mg/dl (8-23); Gamma Glutamyl Transpeptidase 110 U/L (5-36); Magnesium 1.6 mg/dL (1.6-2.5); Uric Acid 6.9 mg/dL (2.5-8.0)
[2016-08-15] MEDS ORDERED: POTASSIUM CHLORIDE 20 MEQ PACKET PO ONE (06:56)
[2016-08-15] MEDS: PANTOPRAZOLE 40 MG TABLET PO SCH (07:44)
[2016-08-15] MEDS: LEVOTHYROXINE 125 MCG TABLET PO SCH (07:45)
[2016-08-15] MEDS ORDERED: predniSONE 20 MG TABLET PO SCH (08:00)
[2016-08-15] MEDS: POTASSIUM CHLORIDE 10 MEQ TABLET PO SCH ×2 (08:36→12:49)
[2016-08-15] MEDS: ALPRAZolam 0.25 MG TABLET PO SCH (08:37)
[2016-08-15] MEDS: METOLAZONE 2.5 MG TABLET PO SCH (08:37)
[2016-08-15] MEDS: MONTELUKAST 10 MG TABLET PO SCH (08:38)
[2016-08-15] MEDS: guaiFENesin 600 MG TAB.SR.12H PO SCH (08:38)
[2016-08-15] MEDS: carBAMazepine 100 MG TAB.CHEW PO SCH (08:41)
[2016-08-15] MEDS: ASPIRIN 81 MG TAB.CHEW PO SCH (08:41)
[2016-08-15] MEDS: TORSEMIDE 10 MG TABLET PO SCH (08:43)
[2016-08-15] MEDS: HEPARIN 5,000 UNIT/ML VIAL SQ SCH (08:44)
[2016-08-15] MEDS: VIT A,C & E/LUTEIN/MINERALS TABLET PO SCH (08:44)
[2016-08-15] MEDS: FAMOTIDINE/PF 20 MG/2 ML VIAL IV SCH (08:44)
[2016-08-15] MEDS: CALCIUM POLYCARBOPHIL 1 TABLET PO SCH ×2 (08:44→09:09)
[2016-08-15] MEDS: FLUTICASONE/SALMETEROL 500/50 INHALER #14 INH SCH (08:45)
[2016-08-15 12:38] LABS: Blood Urea Nitrogen 21 mg/dl (8-23)
--- NOTE | 2016-08-15 13:35 | Discharge Summary ---
Medical - DS: Prov Patient information: Note initiated : 08/15/16 at 1:32 pm Service Date, if different from initiated Date: [] Patient: Rosalba Mueller 71 y/o F admitted on 08/12/16 for Vomiting, Shortness of Breath/Pneumonia. Chief Complaint: [] Date of admission: 08/12/16 16:00 Discharge date: 08/15/16 Primary care physician: Catrachita Madden Admitting clinician: Haley Salazar Discharging clinician: Haley Salazar Medical - DS: Meds - Discharge Medications Prescriptions: Levofloxacin [Levaquin] 750 mg PO DAILY #4 tablet Metolazone [Zaroxolyn] 2.5 mg PO DAILY #1 tablet Potassium Chloride 40 meq PO TID #1 capsule.er predniSONE [Prednisone] 40 mg PO ONCE #38 tablet Torsemide [Demadex] 40 mg PO DAILY #1 tablet Active and Home Medications: Home Medications ALPRAZolam [Xanax] 0.25 mg PO BID 08/12/16 [History Confirmed 08/12/16 Last Taken Unknown] Albuterol Sulfate 1.25 mg IH QIDP PRN 08/12/16 [History Confirmed 08/12/16 Last Taken Unknown] Albuterol Sulfate [Proair Respiclick] 90 mcg IH Q6HP PRN 08/12/16 [History Confirmed 08/12/16 Last Taken Unknown] Aspirin [Lo-Dose Aspirin EC] 81 mg PO DAILY 08/12/16 [History Confirmed Last Taken Unknown] Blood Sugar Diagnostic [Test Strips] 1 appful .ROUTE BID 08/12/16 [History Confirmed 08/12/16 Last Taken Unknown] Calcium Polycarbophil [Fiber] 1,250 mg PO DAILY 08/12/16 [History Confirmed 03/30 Last Taken Unknown] Cyanocobalamin (Vitamin B-12) [Vitamin B12] 2,500 mcg PO MONTHLY 08/12/16 [ History Confirmed 08/12/16 Last Taken Unknown] Ergocalciferol (Vitamin D2) [Vitamin D2] 50,000 unit PO WEEKLY 08/12/16 [ History Confirmed 08/12/16 Last Taken Unknown] Esomeprazole Magnesium [Nexium] 40 mg PO DAILY 08/12/16 [History Confirmed 08/12 Last Taken Unknown] Fluocinonide [Fluocinonide] 1 appful TOPICAL BID 08/12/16 [History Confirmed 03/30 Last Taken Unknown] Fluticasone/Salmeterol [Advair 500-50 Diskus] 1 puff INH BID 08/12/16 [History Confirmed 08/12/16 Last Taken Unknown] HYDROcodone/APAP 10/325MG 1 - 2 tab PO Q4HP PRN 08/12/16 [History Confirmed 03/30 Last Taken Unknown] Lancets [Blood Lancets] 1 appful .ROUTE BID 08/12/16 [History Confirmed Last Taken Unknown] Levothyroxine [Synthroid] 125 mcg PO DAILY 08/12/16 [History Confirmed 08/12/16 Last Taken Unknown] Metolazone [Zaroxolyn] 2.5 mg PO MOWEFR@0900 08/12/16 [History Confirmed Last Taken Unknown] Montelukast [Singular] 10 mg PO DAILY 08/12/16 [History Confirmed 08/12/16 Last Taken Unknown] Mv-Mn/FA/Vit K1/Lycop/Lut/Zeax [Ocuvite Eye + Multi Tablet] 1 tab PO DAILY 08/12 [History Confirmed 08/12/16 Last Taken Unknown] Ondansetron [Zofran Odt] 8 mg PO Q6HP PRN 08/12/16 [History Confirmed 08/12/16 Last Taken Unknown] Potassium Chloride [Kdur] 20 meq PO TID 08/12/16 [History Confirmed 08/12/16 Last Taken Unknown] Pramipexole Di-HCl [Mirapex] 1 mg PO DAILY 08/12/16 [History Confirmed 08/12/16 Last Taken Unknown] Refresh Tears 1 appful TOPICAL QIDP PRN 08/12/16 [History Confirmed 08/12/16 Last Taken Unknown] Theophylline Anhydrous [Kevin-24] 300 mg PO DAILY 08/12/16 [History Confirmed 03/30 Last Taken Unknown] Torsemide [Demadex] 60 mg PO DAILY 08/12/16 [History Confirmed 08/12/16 Last Taken Unknown] carBAMazepine [TEGretol] 100 mg PO HS 08/12/16 [History Confirmed 08/12/16 Last Taken Unknown] carBAMazepine [TEGretol] 200 mg PO DAILY 08/12/16 [History Confirmed 08/12/16 Last Taken Unknown] guaiFENesin [Mucinex] 1,200 mg PO DAILY 08/12/16 [History Confirmed 08/12/16 Last Taken Unknown] Medical - DS: Hosp Hospital course: Mr. Mueller is a 71 year old F with h/o cva in 2007 presented to the [facility] with sob, weakness and hypoxia, and was admitted to the hospital with copd exacerbation, possible sarcoid flare up, and Pneumonia Pneumonia: Treated with broad spectrum abx, vanco and zosyn for 4 days inpatient , responded well to treatment, pt is off oxygen on d/c will be discharged on levofloxacin 750mg x 4 more days. COPD exacerbation Pt has wheezing on presentation, treated with abx, duonebs and steroids, responded well to rx. she will be discharged on a prednisone taper and her home inhalers. Sarcoidosis: Pt has h/o sarcoidosis, the patient CT Scan done this visit shows much worsening of the disease, its plausible that the patient also had a sarcoid flare, she is not on steroids at this point and was weaned off same approximately 6 months ago in January. She was treated with steroids and she seems to have responded to same. AT this time she will continue on a steroid taper after discharge over 2 weeks. 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 Hypokalemia: The pt had low K on presentation and was on torsemide 60 and metolazone 2.5mg three times a week for her heart failure. She takes 20meq of KCL at home three times a day, Despite increasing her dose of KCL to 30 TID and giving additional supplementation the K level was difficult to keep to normal. She is being discharged on KCL 40meq three times a day. She needs to have a repeat lab work done in 7 days to check her potassium. Renal failure: The patient presented with Creat of 1.5, which responded to treatment and she was 1.0 the next day. On resumption of her diuretics her creatinine started to creep up gradually. on discharge her creat is 1.3. I therefore decided to cut back on the dose of diuretics in the hope of preventing any further worsening of her renal function. Her dose was increased by her PCP. She will be discharged on torsemide 40mg per day, and metolazone 2.5mg twice a week. Again needs to have bmp in 7 days to be followed up by her PCP. UTI: Ua positive for UTI, neg culture, was on bactrim before, covered by zosyn while inpatient. The rest of the hospital stay was uneventful. She needs close follow up by her PCP for monitoring her potassium level and kidney function test. This has been explained very clearly to the patient and her who verbalized understanding. The patient will get home PT and OT to help improve her strength, aiding in transfers and help with ADL. Discharge diagnosis: copd exacerbation, sarcoid flare, Pneumonia. - Time Spent with Patient Total time spent providing and/or coordinating discharge services: Greater than 30 minutes Medical - DS: Exam - Constitutional Vitals: Vital Signs Temp Pulse Pulse Resp BP BP Pulse Ox 08/15/16 12:00 98.1 F 81 18 126/91 93 08/15/16 11:17 76 11 L 08/15/16 07:56 98.1 F 16 136/82 95 08/15/16 07:14 87 18 94 08/15/16 04:00 98.6 F 24 H 108/69 94 08/15/16 03:30 108/69 08/15/16 00:44 123/69 08/15/16 00:00 99.0 F H 24 H 123/69 95 08/14/16 23:06 80 20 08/14/16 20:00 98.9 F 24 H 121/83 95 08/14/16 19:50 98.9 F 24 H 121/83 95 08/14/16 19:30 82 20 08/14/16 19:29 95 08/14/16 19:25 97 08/14/16 16:46 135/87 08/14/16 16:24 84 18 08/14/16 16:00 97.8 F 90 16 135/87 94 08/14/16 13:59 116/75 Intake and Output 08/14/16 08/15/16 08/15/16 21:59 05:59 13:59 Intake Total 300 / 300 1370 / 1370 120 / 120 Output Total 1000 / 1000 1400 / 1400 Balance -700 / -700 -30 / -30 120 / 120 Intake: IV 300 / 300 100 / 100 Zosyn 3.375 gm In 50 / 50 100 / 100 Dextrose 5% in Water 50 ml @ 100 mls/hr IV Q6H [facility] Rx#:[id number] Vancomycin 1,000 mg In 250 / 250 Sodium Chloride 0.9% 250 ml @ 250 mls/hr IV Q24H [facility] Rx#:[id number] Oral 1270 / 1270 120 / 120 Output: Urine Catheter Amount 1000 / 1000 1400 / 1400 Other: Meal Breakfast Percent of Meal Consumed 75% # Bowel Movements 1 2 Weight 190 lb 3.2 oz Additional comments: Constitutional; Afebrile, cooperative, alert, not in distress. Eyes- No icterus, , No periorbital swelling Ears- Ext ear normal, hearing normal to conversation. Neck- Midline trachea, supple Respiratory system: Air Entry equal on both sides, No crackles or wheezing, no rhonchi. CVS- Rate rhythm regular, S1,S2 heard, no gallop, no rub. Abdomen- Soft nontender abdomen, no organomegaly, no tenderness, no guarding or rigidity, [employer]SET [employer]TER- AOOx3, unchanged neurological function. Medical - DS: Data Labs on day of discharge: Labs from last 24 hours 08/15/16 08/15/16 08/15/16 11:37 03:50 03:50 WBC 7.7 RBC 4.38 Hgb 13.8 Hct 40.5 MCV 92.6 MCH 31.6 MCHC 34.1 RDW 14.7 H Plt Count 256 MPV 9.0 Gran % 68.1 Lymph % (Auto) 21.3 [place] % (Auto) 8.8 Eos % (Auto) 1.4 Baso % (Auto) 0.4 Gran # 5.3 Lymph # (Auto) 1.6 [place] # (Auto) 0.7 Eos # (Auto) 0.1 Baso # (Auto) 0 Sodium 133 133 Potassium 3.8 2.8 L* Chloride 88 L 86 L Carbon Dioxide 30 31 H Anion Gap 15.0 16.0 BUN 21 21 Creatinine 1.3 H 1.2 H GFR Calculation 41 45 Glucose 131 H 90 Uric Acid 6.9 Calcium 9.1 9.0 Phosphorus 2.9 Magnesium 1.6 Total Bilirubin 0.3 Direct Bilirubin < 0.2 GGT 110 H AST 19 ALT 16 Alkaline Phosphatase 85 Lactate Dehydrogenase 228 Total Protein 6.5 Albumin 3.4 Globulin 3.1 Albumin/Globulin Ratio 1.1 Triglycerides 191 H Vancomycin Trough 08/14/16 08/14/16 12:57 12:57 WBC RBC Hgb Hct MCV MCH MCHC RDW Plt Count MPV Gran % Lymph % (Auto) [place] % (Auto) Eos % (Auto) Baso % (Auto) Gran # Lymph # (Auto) [place] # (Auto) Eos # (Auto) Baso # (Auto) Sodium 133 Potassium 2.9 L* Chloride 86 L Carbon Dioxide 27 Anion Gap 20.0 H BUN 20 Creatinine 1.2 H GFR Calculation 45 Glucose 115 H Uric Acid Calcium 9.4 Phosphorus Magnesium Total Bilirubin Direct Bilirubin GGT AST ALT Alkaline Phosphatase Lactate Dehydrogenase Total Protein Albumin Globulin Albumin/Globulin Ratio Triglycerides Vancomycin Trough 18.5 H Medical - DS: A/P - Patient/Caregiver Discharge Instructions Activity: as per physical therapy, increase activity as tolerated Diet: Cardiac Additional Instructions: Follow up with PCP in 7 days You need a BMP to be checked to evaluate your kidney function and potassium level. Please make sure your primary care doctor orders the test and follows the result. (very important) You need to cut back on the dose of torsemide from 60mg daily to 40mg daily, The dose of metolozone is changed from 2.5mg Saturday, Sat, Saturday. To 2.5mg on saturday and saturday. (no medication on sat) Increase the potassium supplementation from 20mg Three times a day to 40mg three times a day Take your antibiotics and steroids as prescribed. Go to the ER if any worsening condition, or any new concerning symptom. Prescriptions: Levofloxacin [Levaquin] 750 mg PO DAILY #4 tablet Metolazone [Zaroxolyn] 2.5 mg PO DAILY #1 tablet Potassium Chloride 40 meq PO TID #1 capsule.er predniSONE [Prednisone] 40 mg PO ONCE #38 tablet Torsemide [Demadex] 40 mg PO DAILY #1 tablet - Follow up Plan Follow up with: Catrachita Madden ARNP [Primary Care Provider] - 08/21/16 11:00 am Disposition: Home Health Service Prognosis: Good Rehab Potential: Fair I certify that the patient requires SNF services: No Overall status at discharge: patient is progressing back to baseline Medical - DS: Qual - VTE Deep Vein Thrombosis/Pulmonary Embolism Present on Admission: No
[2016-08-15] MEDS: ACETAMINOPHEN 325 MG TABLET PO PRN (14:03)
== END 2016-08-15 15:30 | disposition home health service (06) | DRG 190 ==
LOC: ED 11:27 → ICU 16:00
PROVIDERS: ADMIT Internal Medicine; ATTEND Internal Medicine